=== PATIENT | female | born 1965 | race Caucasian/White ===

== ENCOUNTER 2019-09-10 04:58 | Day surgery (SDC) | payer BC ==
[2019-09-06 16:58] VITALS: BMI 32.6
[~2019-09-10 04:58] MED LIST: CEFAZOLIN 2 GM in DEXTROSE 5%-WATER 100 ML IVPB ONE; PHENAZOPYRIDINE HCL 100 MG TABLET (FP) PO ONE; ceFAZolin SODIUM 1 GM VIAL IVPB ONE
[2019-09-10] MEDS ORDERED: ceFAZolin SODIUM 1 GM VIAL ONE (06:45)
[2019-09-10] MEDS ORDERED: BUPIVACAINE HCL/PF 0.5% (5 MG/ML) 30 ML VIAL IJ ONE ×2 (07:25→10:18)
[2019-09-10] MEDS ORDERED: PROPOFOL 20 ML ONE (07:42)
[2019-09-10] MEDS ORDERED: fentaNYL CITRATE 250 MCG/5 ML VIAL ONE (07:42)
[2019-09-10] MEDS ORDERED: ROPIVACAINE HCL 0.5% 30ML VIAL ONE (07:43)
[2019-09-10] MEDS ORDERED: ROCURONIUM BROMIDE 50 MG/5 ML SYRINGE ONE ×2 (07:43→09:04)
[2019-09-10] MEDS ORDERED: MIDAZOLAM HCL 2 MG/2 ML SINGLE DOSE VIAL ONE ×2 (07:44)
--- NOTE | 2019-09-10 07:49 | HP ---
History & Physical Update - History History: No Change - Physical Physical: No Change - Assessment Assessment: No Change - Plan Plan: No Change
[2019-09-10] MEDS ORDERED: ceFAZolin SODIUM 1 GM VIAL IVPB ONE (08:25)
[2019-09-10] MEDS ORDERED: NEOSTIGMINE METHYLSULFATE 0.5 MG/ML - 10 ML MDV ONE (10:13)
[2019-09-10] MEDS ORDERED: DEXAMETHASONE SOD PHOSPHATE 4 MG/1 ML VIAL ONE (10:14)
[2019-09-10] MEDS ORDERED: LIDOCAINE HCL/PF 2% SDV 5ML VIAL ONE (10:14)
[2019-09-10] MEDS ORDERED: KETOROLAC TROMETHAMINE 30 MG/1 ML VIAL ONE (10:14)
[2019-09-10] MEDS ORDERED: GLYCOPYRROLATE 0.2 MG/1 ML VIAL ONE (10:14)
[2019-09-10] MEDS ORDERED: ONDANSETRON 4 MG/2 ML VIAL IVPUSH PRN ×2 (10:51→11:03)
[2019-09-10] MEDS ORDERED: LACTATED RINGERS SOLUTION 1,000 ML IV SCH (11:00)
[2019-09-10] MEDS ORDERED: oxyCODONE HCL 5 MG TABLET PO PRN (11:03)
[2019-09-10] MEDS ORDERED: DOCUSATE SODIUM 100 MG CAPSULE (FP) PO PRN (11:03)
[2019-09-10] MEDS ORDERED: BISACODYL 5 MG TABLET.DR (FP) PO PRN (11:03)
[2019-09-10] MEDS ORDERED: ACETAMINOPHEN 1000 MG/100 ML VIAL (NON FORMULARY) IVPB ONE ×2 (11:07→11:50)
--- NOTE | 2019-09-10 11:11 | OP ---
Operative Note - Note: Operative Date: 09/10/19 Pre-Operative Diagnosis: menorrhagia, adenomyosis Operation: s/p robobotic assisted hysterectomy with bilateral salpingectomy Surgeon: Lalitha Wong Soil Analyst: Estephania Brower Anesthesiologist/WOOD CRAFTER: Ana Hopkins MD Anesthesia: General Estimated Blood Loss (mls): 25 Drains, Volume Out (mls): 180 (ricketts) Fluid Volume Replaced (mls): 1,600 Operative Report Dictated: Yes
[2019-09-10] MEDS: oxyCODONE HCL 5 MG TABLET PO PRN ×2 (13:42→19:12)
[2019-09-10] MEDS ORDERED: CEFAZOLIN 1 GM/D5W 1 GM/50 ML BAG IVPB SCH (17:00)
[2019-09-10] MEDS: CEFAZOLIN 1 GM/D5W 1 GM/50 ML BAG IVPB SCH (17:32)
[2019-09-10] MEDS: ACETAMINOPHEN 500 MG TABLET (FP) PO SCH ×2 (17:32→21:28)
[2019-09-10] MEDS ORDERED: IBUPROFEN 800 MG/8 ML IJ IVPB PRN (19:00)
[2019-09-10 19:45] LABS: HEMATOCRIT 37.4 % (32.4-45.2); HEMOGLOBIN 11.9 GM/dL (10.7-15.3); MCH 25.8 pg (25.7-33.7); MCHC 31.7 g/dl (32.0-36.0); MEAN CELL VOLUME 81.4 fl (80-96); PLATELET COUNT 341 K/MM3 (134-434); RDW 15.4 % (11.6-15.6); WHITE BLOOD COUNT 15.4 K/mm3 (4.0-10.0)
[2019-09-10 20:13] LABS: BLOOD UREA NITROGEN 15.4 mg/dL (7-18); CALCIUM 8.9 mg/dL (8.5-10.1); CREATININE 1.1 mg/dL (0.55-1.3); POTASSIUM 4.1 mmol/L (3.5-5.1)
[2019-09-10] MEDS: SIMETHICONE 80 MG TAB.CHEW (FP) PO PRN (21:31)
--- NOTE | 2019-09-10 22:51 | OP ---
DATE OF OPERATION: 09/10/2019 PREOPERATIVE DIAGNOSIS: Leiomyomatous uterus, menorrhagia. OPERATION: Total laparoscopic robotic hysterectomy and bilateral salpingectomy. SURGEON: Lalitha Wong M.D. PRODUCE TEAM MEMBER: Keron Hoffman ESTIMATED BLOOD LOSS: 25 mL. PROCEDURE: Patient was taken to the operating room, placed in dorsal lithotomy position. Prepped and draped in usual sterile fashion. Timeout was performed in accordance with hospital regulation. Speculum is placed in the vagina. Anterior lip of the cervix was grasped with single-toothed tenaculum. Cervix then dilated to accommodate the uterine manipulator. Phillips catheter was then inserted into the bladder. Attention was then drawn to the umbilicus where an 8-mm umbilical incision was made. Veress needle was inserted into the cavity, approximately 3 to 4 L of CO2 was insufflated in the cavity. Veress needle was then removed, and an 8-mm trocar was then inserted. Laparoscopic camera attached. Visualization revealed leiomyomatous uterus and normal tubes and ovaries. Not much of a right ovary seen. Attention was then drawn to the left side, where 2 incisions were made 8 mm and 5 mm, an 8 mm incision parallel to the umbilical and 5 mm incision 2 fingerbreadths below the ribcage for the and both trocar incisions under direct visualization. Same procedure repeated on the other side with both incisions parallel to each other and 8 to 10 mm apart. Trocars were inserted without difficulty. Laparoscopic camera attached. Da Ej robot was incised down to the patient's arm. Trocars were then inserted. After placement was confirmed and trocars were burped, attention was then drawn to the console, where control of the console was done. Endoshears had been placed in 1 and 2, and 3 the scope, and 4 vessel sealer. Tenaculum was controlled with console. Tenaculum was then used to elevate the uterus to the right side where uterine ovarian ligament was identified, clamped and cut. Uterine artery identified and clamped and cut. Round ligament was identified, clamped and cut. Fascicular uterine reflection was entered and bladder was dissected off the field . The same procedure was repeated on the left side. The Endoshears were then used to enter the vagina and christy were then used to cut the vagina away from the cervix after all pedicles had been coagulated and cut. The ureter was identified and was found to have peristalsis. The cervix and the uterus were then removed from the vagina. The tubes bilaterally grasped and clamped and bilaterally coagulated and cut and removed from the vagina. V-Loc suture was then introduced, and the V-Loc suture was then used to close the vagina in continuous fashion. Hemostasis was achieved, needle was removed to trocar one and all instruments were removed, CO2 was removed from the abdomen. Incisions were then closed using 4-0 Vicryl suture and hemostasis was achieved. Estimated blood loss 25 mL. Kp [id number]
[2019-09-11] MEDS: CEFAZOLIN 1 GM/D5W 1 GM/50 ML BAG IVPB SCH (01:27)
[2019-09-11] MEDS: ACETAMINOPHEN 500 MG TABLET (FP) PO SCH (01:28)
[2019-09-11] MEDS: SIMETHICONE 80 MG TAB.CHEW (FP) PO PRN ×2 (03:42→11:13)
[2019-09-11] MEDS: oxyCODONE HCL 5 MG TABLET PO PRN (06:06)
[2019-09-11 07:54] VITALS: BP 106/50; PULSE 71; TEMP 98.1
--- NOTE | 2019-09-11 07:59 | PN ---
Progress Note (short form) - Note Progress Note: Surgery POD #1 s/p robobotic assisted hysterectomy with bilateral salpingectomy, patient seen and examined at bedside. Patient states she had one isolated incidence of pain in at the level of her diaphragm which radiated to her left shoulder but it resolved relatively soon after it began. She has been OOB ambulating to the bathroom and voiding without any issues. She is tolerating her diet and denies any CP, SOB, N/V, fever or chills. Vital Signs Temp 98.1 F 09/11/19 07:10 Pulse 71 09/11/19 07:10 Resp 18 09/11/19 07:10 BP 106/50 L 09/11/19 07:10 Pulse Ox 99 09/10/19 12:30 Intake & Output 09/10/19 09/10/19 09/11/19 11:59 23:59 11:59 Intake Total 2200 1000 1050 Output Total 205 950 850 Balance 1994 50 200 Intake: IV 2200 600 1000 Lactated Ringers Solution 600 1000 1,000 ml @ 125 mls/hr IV ASDIR PEMA Rx#: [id number] IVPB 100 50 Oral 300 Output: Urine 180 950 850 Phillips 700 Void 100 850 Estimated Blood Loss 25 Other: Voiding Method Indwelling Catheter CBC, BMP 09/11/19 07:31 09/11/19 07:31 PE: A&Ox3, NAD Unlabored resp on RA ABD: Obese, soft, NT/ND, incisions c/d/i with surrounding tissue intact and no evidence of tracking or active d/c. B/L LE compartments soft, supple and non-tender with +2 DP pulses. Problem List - Problems (1) S/P hysterectomy Assessment/Plan: POD #1 doing well, ambulating and using IS. 1) DVT prophylaxis with b/l scds and lovenox 2) OOB as tolerated 3) regular diet 40 D/c planning for home later today. Code(s): Z90.710 - ACQUIRED ABSENCE OF BOTH CERVIX AND UTERUS (2) S/P abdominal hysterectomy and right salpingo-oophorectomy Code(s): Z90.710 - ACQUIRED ABSENCE OF BOTH CERVIX AND UTERUS; Z90.721 - ACQUIRED ABSENCE OF OVARIES, UNILATERAL; Z90.79 - ACQUIRED ABSENCE OF OTHER GENITAL ORGAN(S) (3) S/P abdominal hysterectomy and left salpingo-oophorectomy Code(s): Z90.710 - ACQUIRED ABSENCE OF BOTH CERVIX AND UTERUS; Z90.721 - ACQUIRED ABSENCE OF OVARIES, UNILATERAL; Z90.79 - ACQUIRED ABSENCE OF OTHER GENITAL ORGAN(S)
[2019-09-11 08:10] LABS: HEMATOCRIT 30.6 % (32.4-45.2); MCH 26.5 pg (25.7-33.7); MCHC 32.8 g/dl (32.0-36.0); MEAN CELL VOLUME 80.7 fl (80-96); PLATELET COUNT 267 K/MM3 (134-434); RBC 3.79 M/mm3 (3.60-5.2); RDW 15.4 % (11.6-15.6); WHITE BLOOD COUNT 12.9 K/mm3 (4.0-10.0)
[2019-09-11 08:25] LABS: BLOOD UREA NITROGEN 12.5 mg/dL (7-18); CALCIUM 8.2 mg/dL (8.5-10.1); CREATININE 0.7 mg/dL (0.55-1.3)
--- NOTE | 2019-09-11 08:54 | PN ---
Progress Note (short form) - Note Progress Note: Anesthesia postop note 53 y/o F s/p GA, TAP blocks for robotic hysterectomy POD#1, vss, aaox3, pain well controlled, no complaints. No anesthesia complications.
[2019-09-11] MEDS ORDERED: ENOXAPARIN NA (PORCINE) 40 MG/0.4 ML DISP.SYRIN SQ SCH (10:00)
--- NOTE | 2019-09-11 10:35 | SURG ---
Surgery General Claims Agent Note General Claims Agent: Estephania Brower PA-C Date of Service: 09/11/19 Diagnosis: menorrhagia, adenomyosis Procedure: s/p robobotic assisted hysterectomy with bilateral salpingectomy I was present for the entirety of the operative procedure. For further detail, please refer to operative report. Visit type - Case Type Case Type: Scheduled - Emergency Emergency Visit: No - New patient This patient is new to me today: Yes Date on this admission: 09/10/19
--- NOTE | 2019-09-13 17:29 | PATH ---
Surgical Pathology Report Patient Name: IRINA OWUSU [facility]. Rec. #: [id number] /Age/Gender: 1965 (Age: 53) / F Account: [id number] Location: AMBULATORY SURG Taken: 09/10/2019 Received: 09/10/2019 Reported: 09/13/2019 Physicians: Lalitha Wong M.D. Specimen(s) Received A: UTERUS AND CERVIX B: LEFT FALLOPIAN TUBE AND CYST C: RIGHT FALLOPIAN TUBE Clinical History Abnormal uterine bleeding Final Diagnosis A. UTERUS AND CERVIX, ROBOTIC LAPAROSCOPIC HYSTERECTOMY: 238 G UTERUS. LEIOMYOMA(TA), INTRAMURAL. PROLIFERATIVE ENDOMETRIUM. MYOMETRIUM WITH ADENOMYOSIS. CHRONIC CERVICITIS. B. FALLOPIAN TUBE AND CYST, LEFT, SALPINGECTOMY: FALLOPIAN TUBE WITH PARATUBAL CYSTS (INCLUDING FIMBRIATED END AND FULL LUMINAL PORTION). C. FALLOPIAN TUBE, RIGHT, SALPINGECTOMY: FULL LUMINAL PORTION OF FALLOPIAN TUBE WITH DENSE TUBO-OVARIAN ADHESIONS. Electronically Signed Brandy Singh M.D. Gross Description A. Received in formalin labeled "uterus and cervix," is a 238 g uterus with an attached cervix and no attached adnexa. The specimen measures 10.7 cm from superior to inferior, 7 cm from left to right and 6 cm from anterior to posterior. The serosa is isaac-pink and smooth. The attached cervix measures 2.8 cm in length and 3.2 cm in diameter. The ectocervix is isaac, smooth and glistening. The endocervix is unremarkable. The endometrial cavity measures 4.5 cm in length and 4.0 cm from cornu to cornu. The endometrium is red and averages 0.1 cm in thickness. The myometrium displays multiple intramural nodules, measuring up to 1.0 cm in greatest dimension. The cut surface of the nodules is isaac and rubbery with whorled architecture. The remaining myometrium is isaac-pink and trabeculated, measuring up to 3.6 cm in thickness. Asphalt Layer sections are submitted in 7 cassettes as follows: 1-anterior cervix; 2-posterior cervix; 0-5-ozuokgoe endomyometrium; 8-9-tlhkeaufp endomyometrium; 7-intramural nodules. B. Received in formalin labeled "left fallopian tube and cyst," is a 4 cm in length fimbriated fallopian tube. The outer surface is isaac godinez and smooth with 2 paratubal cysts attached to the fimbria. The cysts measure 0.7 and 1.0 cm in greatest dimension. Sectioning of the fallopian tube reveals an unremarkable lumen. Asphalt Layer sections are submitted in 2 cassettes as follows: 1-fimbria and paratubal cysts; 2-cross sections of fallopian tube. C. Received in formalin labeled "right fallopian tube," is a 3.5 cm in length portion of fallopian tube. No fimbria are present. The outer surface is isaac-brown and smooth. Sectioning reveals an unremarkable lumen. Asphalt Layer sections are submitted in one cassette. 09/11[facility]2019 [facility]
== END 2019-09-11 11:40 | disposition home or self-care (01) ==
LOC: JASUSAT 04:58 → J3W 13:08 → JASUSAT 09-11 11:40
PROVIDERS: ATTEND Obstetrics & Gynecology
PROC: 8E0W8CZ Robotic Assisted Procedure of Trunk Region, Via Natural or Artificial Opening Endoscopic (ICD-10-PCS; 2019-09-10)
PROC: 0UT9FZZ Resection of Uterus, Via Natural or Artificial Opening With Percutaneous Endoscopic Assistance (ICD-10-PCS; principal; 2019-09-10 08:55)
PROC: 0UT7FZZ Resection of Bilateral Fallopian Tubes, Via Natural or Artificial Opening With Percutaneous Endoscopic Assistance (ICD-10-PCS; 2019-09-10 08:55)
DX: N92.0 Excessive and frequent menstruation with regular cycle (principal); D64.9 Anemia, unspecified; E66.9 Obesity, unspecified; D25.1 Intramural leiomyoma of uterus; N80.0 Endometriosis of uterus; N72 Inflammatory disease of cervix uteri; N83.8 Other noninflammatory disorders of ovary, fallopian tube and broad ligament
CPT/HCPCS: 58552; S2900; 36415; 80048; 84703; 85027; 86850; 86900; 86901; 94010; 94760; J0131